=== PATIENT | female | born 1970 | race Caucasian/White ===

== ENCOUNTER 2024-12-28 12:21 | Emergency (ER) | payer MEDICAID, SELFPAY ==
[2024-12-28 12:35] VITALS: BP 113/68; PULSE 79; RESP 16; TEMP 37.4; O2SAT 99; BMI 19.2
[2024-12-28 13:38] VITALS: PULSE 70; O2SAT 100
[2024-12-28 14:08] VITALS: PULSE 71; O2SAT 97
[2024-12-28 14:13] LABS: Eosinophils # 0.4 10^3/uL (0.0-0.8); Eosinophils % 5.7 %; Hematocrit 40.5 % (36-47); Lymphocytes # 0.8 10^3/uL (0.8-4.8); Lymphocytes % 13.3 %; Mean Corpuscular HGB Conc 34.6 g/dL (30-55); Mean Corpuscular Hemoglobin 31.7 pg (27-33); Mean Corpuscular Volume 91.6 fl (85-98); Mean Platelet Volume 8.6 fL (7.4-10.4); Monocytes # 0.2 10^3/uL (0.2-0.9); Monocytes % 3.1 %; Neutrophils # 4.73 10^3/uL (1.8-7.7); Neutrophils % 77.6 %; Nucleated Red Blood Cells % 0 %; Platelet Count 158 10^3/cmm (157-399); Red Blood Count 4.42 10^6/uL (3.85-5.65); Red Cell Distribution Width 12.8 % (12.1-15.1)
[2024-12-28] MEDS: sodium chloride 0.9% 1,000 ML 999 ML IV (14:18)
[2024-12-28] MEDS: ampicillin-sulbactam 1.5 GM in sodium chloride 0.9% (plus) 50 ML IV (14:18)
[2024-12-28 14:32] LABS: Lactic Sepsis W/Reflex 1.4 mmol/L (0.5-2.2)
[2024-12-28 14:35] LABS: Alanine Aminotransferase 15 U/L (0-33); Albumin Level 4.1 g/dL (3.5-5.2); Alkaline Phosphatase 60 U/L (35-105); Anion Gap 18.8 (5-19); Aspartate Amino Transferase 24 U/L (0-32); Blood Urea Nitrogen 15 mg/dL (6-20); Calcium 8.5 mg/dL (8.5-10.5); Carbon Dioxide 22 mmol/L (22-29); Chloride 93 mmol/L (98-107); Creatinine Clr Calc Pharmacy 63.0511; Globulin 3.1 g/dL (1.3-4.6); Glucose 86 mg/dL (65-115); Osmolality Calculated 270 mOsm/kg (285-295); Potassium 3.8 mmol/L (3.5-5.1); Sodium 130 mmol/L (136-145); Total Bilirubin 0.8 mg/dL (0.15-1.2); Total Protein 7.2 g/dL (6.6-8.7)
[2024-12-28 14:38] VITALS: PULSE 81; O2SAT 100
[2024-12-28 14:41] LABS: Procalcitonin 0.25 ng/mL (0-0.5)
--- NOTE | 2024-12-28 14:59 | ED_ITS ---
HPI - Skin/Abscess/Foreign Bdy 2 General: Chief complaint: Skin/Abscess/Foreign Body Stated complaint: allergic reaction Time Seen by Provider: 12/28/24 13:33 History of Present Illness: This patient is a 54-year-old white female who presents to the emergency department with a rash. Patient states it started 2 days ago. It started around the right elbow and now she has developed diffuse erythema. She is not sure if she was bitten by an insect. Also her dog may have scratched her on the right elbow a couple of days ago. She has no chronic medical problems. Related Data Previous Rx's ?Medication ?Instructions ?Recorded amoxicillin 875 mg-potassium 1 tab PO BID #20 tabs 12/17 clavulanate 125 mg tablet Allergies Allergy/AdvReac Type Severity Reaction Status Date / Time Sulfa (Sulfonamide Allergy ALGY-Rash Verified 12/28/24 12:38 Antibiotics) Review of Systems 2 General: Reports: 10 or more systems reviewed and unremarkable except in HPI and below Skin/Breast: Reports: rash and erythema Physical Exam 2 Const: COMMON NORMALS: no acute distress, patient oriented x3 and no limitations GENERAL APPEARANCE: cooperative and comfortable HENMT: COMMON NORMALS: normocephalic, atraumatic, Normal nasal mucous membranes and turbinates present, moist oral mucous membranes and oropharynx normal HEAD & SCALP: normal to inspection, normocephalic and atraumatic F KARSTEN & SINUS: normal facial exam NOSE: Normal nasal mucous membranes and turbinates present Eye: COMMON NORMALS: Equal, round and reactive pupils present, EOMs intact bilaterally and conjunctivae normal GENERAL EYE: appearance normal, both eyes and all related structures CONJUNCTIVA: Yes conjunctivae normal PUPIL: Yes Equal, round and reactive pupils present Neck/C-Spine: COMMON NORMALS: supple and no JVD Chest: COMMONS NORMALS: normal inspection of the chest Resp: COMMON NORMALS: normal respiratory effort and clear to auscultation bilaterally AUSCULTATION: clear to auscultation bilaterally Cardio: COMMON NORMALS: no JVD, regular rate, regular rhythm, No gallops present (Cardio), No murmurs present (Cardio) and No rub (Cardio) RATE: r egular rate RHYTHM: regular rhythm GI: COMMON NORMALS: Normal to inspection, nondistended, normoactive bowel sounds present, Soft to palpation and non-tender AUSCULTATION: Yes normoactive bowel sounds PALPATION: Yes Soft to palpation : COMMON NORMALS: Yes no CVA tenderness BLADDER/KIDNEY EXAM: Yes no CVA tenderness Back/Pelvis: COMMON NORMALS: no CVA tenderness and thoracic and lumbar spine normal to inspection Extremity: COMMON NORMALS: normal to inspection Neuro: COMMON NORMALS: patient oriented x3 and CN's II-XII intact bilaterally Psych: COMMON NORMALS: mental status grossly normal, Normal thought process present and cooperative THOUGHT PROCESS: Normal thought process present Skin: COMMON NORMALS: no rashes or lesions noted, turgor normal and no jaundice NARRATIVE SKIN EXAM: Moderate swelling about the right elbow. Diffuse erythema. No drainage. Tender to palpation. GENERAL SKIN EXAM: no rashes or lesions noted and turgor normal Course 2 Vital Signs: Vital signs: Vital Signs Temperature 99.3 F 12/28/24 12:35 Pulse Rate 70 12/28/24 13:38 Respiratory Rate 16 12/28/24 12:35 Blood Pressure 113/68 12/28/24 12:35 Pulse Oximetry 100 12/28/24 13:38 Oxygen Delivery Me thod Room Air 12/28/24 13:38 MDM - Skin/Abscess/Foreign Bdy Medicial Decision Making CBC and CMP were normal. Lactic acid 1.4. Procalcitonin 0.25. Patient was given 1.5 g of Unasyn IV. She was discharged in stable condition with prescription for Augmentin. Recommended she follow-up with primary care physician or return to the emergency department in 3 to 5 days if no improvement. Lab Data 12/28/24 14:03 12/28/24 14:01 Laboratory Results WBC 6.10 10^3/uL (3.29-11.43) 12/28/24 14:03 RBC 4.42 10^6/uL (3.85-5.65) 12/28/24 14:03 Hgb 14.00 g/dL (11.27-16.99) 12/28/24 14:03 Hct 40.5 % (36-47) 12/28/24 14:03 MCV 91.6 fl (85-98) 12/28/24 14:03 MCH 31.7 pg (27-33) 12/28/24 14:03 MCHC 34.6 g/dL (30-55) 12/28/24 14:03 RDW 12.8 % (12.1-15.1) 12/28/24 14:03 Plt Count 158 10^3/cmm (157-399) 12/28/24 14:03 MPV 8.6 fL (7.4-10.4) 12/28/24 14:03 Neut % (Auto) 77.6 % 12/28/24 14:03 Lymph % (Auto) 13.3 % 12/28/24 14:03 Pike % (Auto) 3.1 % 12/28/24 14:03 Eos % (Auto) 5.7 % 12/28/24 14:03 Baso % (Auto) 0.0 % 12/28/24 14:03 Neut # (Auto) 4.73 10^3/uL (1.8-7.7) 12/28/24 14:03 Lymph # (Auto) 0.8 10^3/uL (0.8-4.8) 12/28/24 14:03 Pike # (Auto) 0.2 10^3/uL (0.2-0.9) 12/28/24 14:03 Eos # (Auto) 0.4 10^3/uL (0.0-0.8) 12/28/24 14:03 Baso # (Auto) 0.0 10^3/uL (0.0-0.1) 12/28/24 14:03 Nucleated RBC % (auto) 0 % 12/28/24 14:03 Nucleated RBCs # 0.0 /100WBC 12/28/24 14:03 Sodium 130 mmol/L (136-145) L 12/28/24 14:01 Potassium 3.8 mmol/L (3.5-5.1) 12/28/24 14:01 Chloride 93 mmol/L (98-107) L 12/28/24 14:01 Carbon Dioxide 22 mmol/L (22-29) 12/28/24 14:01 Anion Gap 18.8 (5-19) 12/28/24 14:01 BUN 15 mg/dL (6-20) 12/28/24 14:01 Creatinine 0.8 mg/dL (0.5-0.9) 12/28/24 14:01 GFR Calculation 75.0 mL/min (90-130) L 12/28/24 14:01 Glucose 86 mg/dL (65-115) 12/28/24 14:01 Calculated Osmolality 270 mOsm/kg (285-295) L 12/28/24 14:01 Lactic Acid 1.4 mmol/L (0.5-2.2) 12/28/24 14:01 Calcium 8.5 mg/dL (8.5-10.5) 12/28/24 14:01 Total Bilirubin 0.8 mg/dL (0.15-1.2) 12/28/24 14:01 AST 24 U/L (0-32) 12/28/24 14:01 ALT 15 U/L (0-33) 12/28/24 14:01 Alkaline Phosphatase 60 U/L (35-105) 12/28/24 14:01 Total Protein 7.2 g/dL (6.6-8.7) 12/28/24 14:01 Albumin 4.1 g/dL (3.5-5.2) 12/28/24 14:01 Globulin 3.1 g/dL (1.3-4.6) 12/28/24 14:01 Procalcitonin 0.25 ng/mL (0-0.5) 12/28/24 14:01 No radiology studies performed this visit Discharge Plan Discharge Patient Disposition: Home Clinical Impression: Cellulitis Qualifiers: Site of cellulitis: extremity Site of cellulitis of extremity: upper extremity Laterality: right Qualified Code(s): L03.113 - Cellulitis of right upper limb Condition: Stable Prescriptions: New amoxicillin-pot clavulanate 875-125 mg tablet 1 tab PO BID Qty: 20 0RF Discharge Orders: Discharge ED (Routine); Ordered 12/28/24 Ordered By: Taj Caruso Patient Instructions: Cellulitis Activity Restrictions/Additional Instructions: Follow-up with primary care physician or return to the emergency department in 3 to 5 days if no improvement. Print Language: Estonian Coding Level of Care Code ED Tool Salvage Worker for Kamryn Montoya
== END 2024-12-28 15:24 | disposition home or self-care (01) ==
PROVIDERS: Emergency Provider Emergency Medicine
DX: L03.113 Cellulitis of right upper limb (principal)
CPT/HCPCS: 36415; 80053; 83605; 84145; 85025; 87040; 96365; 99284; J0295; J7030

== ENCOUNTER 2025-01-01 10:30 | Emergency (ER) | payer MEDICAID, SELFPAY ==
[2025-01-01 10:38] VITALS: PULSE 75; RESP 16; TEMP 36.8; O2SAT 99
--- NOTE | 2025-01-01 10:49 | US_ITS ---
WS: [id number] ULTRASOUND SOFT TISSUES HISTORY: swelling right elbow COMPARISON: None available. TECHNIQUE: 2-D and color Doppler imaging is submitted. Area of increased soft tissue thickening and edema along the RIGHT antecubital space. No discrete mass. This is significantly asymmetric to the LEFT antecubital space. The study is not sufficient to exclude venous or arterial abnormality. Note: This soft tissue evaluation is not sufficient to exclude arterial or venous abnormality. US/US soft tissue/extremity [id number] IMPRESSION: Soft tissue evaluation of the RIGHT antecubital fossa demonstrates moderate sof t tissue thickening and edema. There is no mass. This is asymmetric to the LEFT .
--- NOTE | 2025-01-01 10:49 | W.ED.EXTPRO ---
HPI - Extremity Problem General: Chief complaint: Extremity Injury, Upper Stated complaint: was seen last week for swelling in R arm, numbness Time Seen by Provider: 01/01/25 10:39 Source: patient Mode of arrival: ambulatory Limitations: no limitations History of Present Illness: 54-year-old female states she has had swelling and erythema to her right AC over her elbow going on for roughly 5 6 days she started on Augmentin here on the fifth states that she has had some discoloration and a hard area it has been more painful. She denies any fevers denies any injuries. Associated symptoms: Deny chest pain, fever(s) or rash Related Data Previous Rx's ?Medication ?Instructions ?Recorded amoxicillin 875 mg-potassium 1 tab PO BID #20 tabs 12/28/24 clavulanate 125 mg tablet Allergies Allergy/AdvReac Type Severity Reaction Status Date / Time Sulfa (Sulfonamide Allergy ALGY-Rash Verified 12/28/24 12:38 Antibiotics) Review of Systems Const: Denies: fever(s), chills, body aches or change in appetite ENMT: Denies: throat pain or dental pain Card: Denies: chest pain Resp: Denies: dyspnea GI: Denies: abdominal pain, nausea, vomiting or diarrhea Musc: Reports: extremity pain; Denies: neck pain or back pain Skin/Breast: Denies: rash Neuro: Denies: headache(s) Physical Exam Const: COMMON NORMALS: no acute distress, patient oriented x3 and healthy appearing HENMT: COMMON NORMALS: normocephalic and atraumatic HEAD & SCALP: normocephalic and atraumatic Eye: COMMON NORMALS: conjunctivae normal CONJUNCTIVA: Yes conjunctivae normal Neck/C-Spine: COMMON NORMALS: full ROM and supple Chest: COMMONS NORMALS: normal inspection of the chest Resp: COMMON NORMALS: normal respiratory effort Cardio: COMMON NORMALS: regular rate RATE: regular rate Extremity: NARRATIVE EXTREMITY EXAM: Erythema noted to right AC slight swelling distal pulses sensation intact Neuro: COMMON NORMALS: patient oriented x3, moves all extremities and no focal motor deficits Psych: COMMON NORMALS: mental status grossly normal, Normal thought process present and cooperative THOUGHT PROCESS: Normal thought process present Skin: COMMON NORMALS: no rashes or lesions noted GENERAL SKIN EXAM: no rashes or lesions noted Course Vital Signs: Vital signs: Vital Signs Temperature 98.3 F 06/09/25 10:38 Pulse Rate 75 01/01/25 10:38 Respiratory Rate 16 01/01/25 10:38 Pulse Oximetry 99 01/01/25 10:38 Oxygen Delivery Me thod Room Air 01/01/25 10:38 MDM - Extremity (Nontraumatic) Medical Decision Making Patient presents here with cellulitis to right elbow possible, recluse bite does have some discoloration no eschar is noted she is prescribed antibiotics today by her PCP and she has follow-up with wound care she is return if worsening Medical Records I reviewed the patient's medical records. Lab Data I reviewed the patient's lab results. 01/01/25 11:01 Radiology Impressions Soft Tissue Ultrasound 01/01/25 10:49 IMPRESSION: Soft tissue evaluation of the RIGHT antecubital fossa demonstrates moderate soft tissue thickening and edema. There is no mass. This is asymmetric to the LEFT. Laboratory Results WBC 6.65 10^3/uL (3.29-11.43) 01/01/25 11:01 RBC 4.15 10^6/uL (3.85-5.65) 01/01/25 11:01 Hgb 13.20 g/dL (11.27-16.99) 01/01/25 11:01 Hct 37.4 % (36-47) 01/01/25 11:01 MCV 90.1 fl (85-98) 01/01/25 11:01 MCH 31.8 pg (27-33) 01/01/25 11:01 MCHC 35.3 g/dL (30-55) 01/01/25 11:01 RDW 12.2 % (12.1-15.1) 01/01/25 11:01 Plt Count 225 10^3/cmm (157-399) 01/01/25 11:01 MPV 9.0 fL (7.4-10.4) 01/01/25 11:01 Neut % (Auto) 72.7 % 01/01/25 11:01 Lymph % (Auto) 14.4 % 01/01/25 11:01 Kerr % (Auto) 5.4 % 01/01/25 11:01 Eos % (Auto) 6.2 % 01/01/25 11:01 Baso % (Auto) 0.2 % 01/01/25 11:01 Neut # (Auto) 4.84 10^3/uL (1.8-7.7) 01/01/25 11:01 Lymph # (Auto) 1.0 10^3/uL (0.8-4.8) 01/01/25 11:01 Kerr # (Auto) 0.4 10^3/uL (0.2-0.9) 01/01/25 11:01 Eos # (Auto) 0.4 10^3/uL (0.0-0.8) 01/01/25 11:01 Baso # (Auto) 0.0 10^3/uL (0.0-0.1) 01/01/25 11:01 Nucleated RBC % (auto) 0 % 01/01/25 11:01 Nucleated RBCs # 0.0 /100WBC 01/01/25 11:01 All radiology interpretation(s) finalized by discharge Discharge Plan Discharge Patient Disposition: Home Clinical Impression: Cellulitis Condition: Stable Prescriptions: No Action amoxicillin-pot clavulanate 875-125 mg tablet 1 tab PO BID Qty: 20 0RF Discharge Orders: Discharge ED (Routine); Ordered 01/01/25 Ordered By: Joann Carter Discharge Diet: Advance as tolerated Discharge Activity: Resume usual activity Patient Instructions: Cellulitis (ED) Print Language: Indian Coding Level of Care Code ED File Clerk Data Entry for Kamryn Montoya
[2025-01-01 11:08] LABS: Basophils % 0.2 %; Eosinophils # 0.4 10^3/uL (0.0-0.8); Eosinophils % 6.2 %; Hematocrit 37.4 % (36-47); Lymphocytes % 14.4 %; Mean Corpuscular HGB Conc 35.3 g/dL (30-55); Mean Corpuscular Hemoglobin 31.8 pg (27-33); Mean Corpuscular Volume 90.1 fl (85-98); Monocytes # 0.4 10^3/uL (0.2-0.9); Monocytes % 5.4 %; Neutrophils # 4.84 10^3/uL (1.8-7.7); Neutrophils % 72.7 %; Nucleated Red Blood Cells % 0 %; Platelet Count 225 10^3/cmm (157-399); Red Blood Count 4.15 10^6/uL (3.85-5.65); Red Cell Distribution Width 12.2 % (12.1-15.1); White Blood Count 6.65 10^3/uL (3.29-11.43)
--- NOTE | 2025-01-01 11:10 | PC.PHAR ---
Patient states she received a ibprofen shot earlier today before the pain happened in her arm
[2025-01-01 11:46] VITALS: BP 104/71; PULSE 65; O2SAT 98
--- NOTE | 2025-01-02 07:47 | DCPLANNER ---
Message sent to wound care
== END 2025-01-01 11:47 | disposition home or self-care (01) ==
PROVIDERS: Emergency Provider Emergency Medicine
DX: L03.113 Cellulitis of right upper limb (principal)
CPT/HCPCS: 36415; 76882; 85025; 99284